=== PATIENT | female | born 1995 | race Caucasian/White ===

== ENCOUNTER 2017-03-20 00:11 | Emergency (ER) | payer BC ==
[2017-03-20 00:11] VITALS: TEMP 36.9; O2SAT 99; Ht 152.4 cm
[2017-03-20 01:40] LABS: BLOOD UREA NITROGEN 9 mg/dl (7-18); BUN/CREATININE RATIO 13.6 (10-20); CALCIUM 8.8 mg/dl (8.5-10.1); CARBON DIOXIDE 24 mmol/L (21-32); CHLORIDE 110 mmol/L (98-107); CREATININE 0.69 mg/dl (0.60-1.20); GLUCOSE 102 mg/dl (70-99); POTASSIUM 3.3 mmol/L (3.5-5.1); SODIUM 143 mmol/L (136-145)
[2017-03-20] MEDS ORDERED: POTASSIUM CHLORIDE 10 MEQ TABCR PO STA (04:28)
[2017-03-20 07:11] VITALS: BP 111/86; PULSE 105; O2SAT 98
[2017-03-20] MEDS ORDERED: POTASSIUM CHLORIDE 10 MEQ TABCR ONE (07:14)
--- NOTE | 2017-03-20 21:24 | EMERGENCY ROOM VISIT NOTE ---
History First contact with patient: 00:12 Chief Complaint: ALCOHOL OVERDOSE Stated Complaint: ALCOHOL Nursing Triage Summary: Pt arrived via [facility] from [facility]. 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 Friends noticed vomit was pink and was concerned it was bloody. EMS arrived and found pt unresponsive lying on grass outside of house on [address] Pt initially unresponsive to pain, but awoke with movement onto EMS litter. Upon arrival to ER, pt tearful. Denies trauma. 1x episode emesis. Appears to be pink food particles. Pt denies drug use. Denies pain. History of Present Illness The patient is a 22 year old female who presents to the Emergency Room with complaints of alcohol overdose. Patient was drinking a lot of alcohol and started vomiting. Friends called EMS. Patient states she had a lot of alcohol. Patient is highly intoxicated. She denies any current medical complaints or drug use. 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 Current/Historical Medications Unable to Obtain Active Prescriptions or Reported Meds Physical Exam Vital Signs Date Time Temp Pulse Resp B/P (MAP) Pulse Ox O2 Delivery O2 Flow Rate FiO2 03/20/17 07:11 105 16 111/86 98 03/20/17 07:01 117 03/20/17 06:59 110 16 111/86 98 Room Air 03/20/17 06:35 92 17 93/65 98 Room Air 03/20/17 06:11 74/36 03/20/17 06:05 54 13 96 03/20/17 05:35 61 14 95 03/20/17 05:30 73/44 03/20/17 05:25 80/45 03/20/17 05:05 66 16 96 03/20/17 05:00 80/45 03/20/17 04:38 76 03/20/17 04:35 71 14 95 03/20/17 04:30 90/41 03/20/17 04:05 64 14 95 03/20/17 04:00 77/35 03/20/17 03:35 63 15 95 03/20/17 03:30 76/33 03/20/17 03:21 64 14 95 03/20/17 03:12 85/44 03/20/17 02:51 60 14 95 03/20/17 02:30 73/35 03/20/17 02:21 72 13 96 03/20/17 02:00 76/55 03/20/17 01:51 63 17 95 03/20/17 01:46 62 17 94 03/20/17 01:31 75/37 03/20/17 01:16 58 17 91 03/20/17 01:01 112/67 03/20/17 00:46 101 17 99 03/20/17 00:41 83 17 100 03/20/17 00:33 119 03/20/17 00:30 136/91 03/20/17 00:16 121/101 03/20/17 00:11 99 Room Air 03/20/17 00:11 36.9 124 18 121/101 99 Room Air Physical Exam PHYSICAL EXAM: VITALS: Vitals are noted on the nurse's note and reviewed by myself. Vital signs stable. GENERAL: White female EtOH odor, in no acute distress, nondiaphoretic, well- developed well-nourished. The patient is visibly intoxicated. SKIN: The skin was without obvious lacerations, abrasions, or rashes. There is no tenting of the skin. Capillary reflex less than 2 seconds. HEENT: Normocephalic, atraumatic. PERRLA. EOMI. Conjunctiva with mild injection without icterus. Tympanic membranes without erythema or effusion bilaterally no hemotympanum. External auditory canals are clear. Nares patent bilaterally. No epistaxis. Oropharynx without erythema or exudate. Uvula midline. Oral mucosal moist. No lymphadenopathy. Neck is supple without cervical spine tenderness. HEART: Regular rate and rhythm without murmurs gallops or rubs. Peripheral pulses 2+. LUNGS: Clear to auscultation bilaterally without wheezes, rales or rhonchi. ABDOMEN: Positive bowel sounds x 4. Normal tympanic percussion. Soft, nontender, without masses or organomegaly. MUSCULOSKELETAL: Gross motor function of the upper and lower extremities intact. The patient has a staggering gait. NEUROLOGIC: The patient is visibly intoxicated. Once they were more sober they were alert and oriented to person place and time. Medical Decision & Procedures Laboratory Results 03/20/17 00:31 Test 03/20/17 00:31 Anion Gap 9.0 mmol/L (3-11) Estimated GFR () 145.2 Estimated GFR (Non- 125.3 BUN/Creatinine Ratio 13.6 (10-20) Calcium Level 8.8 mg/dl (8.5-10.1) Ethyl Alcohol mg/dL 319.0 mg/dl (0-3) Medications Administered Medications (Trade) Dose Ordered Sig/Peterson Route Start Time Stop Time Status Last Admin Dose Admin Potassium Chloride (Klor-Con M10) 20 meq STK-MED ONCE .ROUTE 03/20/17 07:14 03/20/17 07:15 DC 03/20/17 07:14 20 MEQ ED Course Prior records/ancillary studies reviewed. Triage Nursing notes reviewed. Additional history obtained from EMS The patient's history was concerning for altered mental status and a possible alcohol overdose. Differential diagnosis: Etiologies such as alcohol intoxication, toxicologic, infection, hypoglycemia, electrolyte abnormalities, cardiac sources, intracerebral event, neurologic, as well as others were entertained. Physical examination: As above. The patient is clinically intoxicated. no trauma noted. ER treatment provided: Monitoring Aspiration precautions The patient was frequently reassessed. Diagnostic interpretation by me: Cardiac monitoring did not reveal any evidence of dysrhythmia. The labs revealed hypokalemia. The patient's blood alcohol level was 319 mg/dL. The patient's history was reviewed once they were more coherent and their intoxication cleared. The patient states they have been in good health recently and had no medical complaints. The patient admitted to consuming alcohol. No additional concerning findings were noted. The patient complained of no symptoms to suggest assault. This appears to be consistent with an isolated overdose of alcohol. By the evaluation outlined above emergent etiologies such as trauma, infection, hypoglycemia, electrolyte abnormalities, cardiac sources, intracerebral event, neurologic,as well as others were deemed relatively unlikely. The patient was informed about the findings as listed above. The patient was counseled on the dangers of excessive alcohol use. I gave my usual and customary discussion regarding this issue. All questions were answered and the patient was pleased with the treatment. Return instructions were outlined and the patient was discharged in stable condition once their mental status improved and a safe destination was confirmed. Outpatient prescription management: None Referral: The patient was referred back to their primary care physician for follow-up in 2 to 3 days for a recheck of their current condition. Medical Decision As above Medication Reconcilliation Current Medication List: was personally reviewed by me Impression Primary Impression: Alcohol overdose Additional Impression: Hypokalemia Departure Information Dispostion Home / Self-Care Condition GOOD Prescriptions Unable to Obtain Active Prescriptions or Reported Meds Referrals No Doctor, Assigned (PCP) Forms HOME CARE DOCUMENTATION FORM, IMPORTANT VISIT INFORMATION Patient Instructions My [employer] Additional Instructions Keep well-hydrated. Tylenol every 6 hours as needed for pain (Maximum 3000 mg Tylenol in 24 hr period). Follow up with family doctor and/or health services as needed. No driving for the next 24 hours. Recommend no alcohol for the next 48 hours and avoid binge drinking in the future. Return to ER sooner for chest pain, abdominal pain, worsening signs or symptoms or as needed. Problem Qualifiers
== END 2017-03-20 07:11 | disposition home or self-care (01) ==
LOC: EDBD 00:11 → C.EDA 00:12
DX: T51.91XA Toxic effect of unspecified alcohol, accidental (unintentional), initial encounter (principal); E87.6 Hypokalemia; Y90.8 Blood alcohol level of 240 mg/100 ml or more